=== PATIENT | female | born 1980 | race Caucasian/White ===

== ENCOUNTER 2019-04-18 18:52 | Outpatient (REF) | payer OTHER, SELFPAY ==
[2019-04-18 20:51] LABS: Abs Immature Grans 0.01 k/cumm (0.0-0.09); Absolute Basophil Count 0.02 k/cumm (0.0-0.2); Absolute Eosinophil Count 0.13 k/cumm (0.0-0.7); Absolute Lymphocyte Count 2.92 k/cumm (1.2-3.4); Absolute Monocyte Count 0.85 k/cumm (0.11-0.7); Absolute Neutrophil Count 6.07 k/cumm (1.2-6.7); Basophils % 0.2; Eosinophils % 1.3; HCT 41.2 % (36.0-46.0); HGB 13.6 g/dL (12.0-15.5); Immature Grans % 0.1 %; Lymphocytes % 29.2; Mean Corpuscular Hemoglobin 31.1 pg (27.0-33.0); Mean Corpuscular Volume 94.1 fL (80-95); Mean Platelet Volume 9.6 fL (8.0-11.0); Monocytes % 8.5; Neutrophils % 60.7; Platelet Count 358 x1000/uL (130-400); RBC 4.38 m/cumm (4.00-5.20); RBC Distribution Width 12.4 % (11.7-14.6)
[2019-04-18 21:16] LABS: ALT 22 U/L (14-59); AST 15 U/L (15-37); Albumin 4.1 g/dL (3.4-5.0); Alkaline Phosphatase 53 U/L (46-116); Anion Gap 9.4 mmol/L (3-11); BUN 20 mg/dL (7-18); Bilirubin, Total 0.1 mg/dL (0.2-1.0); CO2 24.6 mmol/L (21.0-32.0); CREATININE 0.85 mg/dL (0.55-1.02); Calcium 8.7 mg/dL (8.5-10.1); Chloride 105 mmol/L (98-107); Glucose 88 mg/dL (74-106); Potassium 4.2 mmol/L (3.5-5.1); Sodium 139 mmol/L (136-145)
== END 2019-04-18 19:12 ==
LOC: NCHCN 18:52
PROVIDERS: PCP Family Medicine; Visit Provider Physician Assistant Medical
DX: R53.83 Other fatigue (principal)
CPT/HCPCS: 80053; 84443; 85025

== ENCOUNTER 2019-06-29 10:18 | Outpatient (REF) | payer OTHER, SELFPAY ==
[2019-06-29 19:32] LABS: TSH 2.34 uIU/mL (0.36-3.74)
== END 2019-06-29 10:38 ==
LOC: NCHCN 10:18
PROVIDERS: PCP Family Medicine; Visit Provider Physician Assistant Medical
DX: E03.9 Hypothyroidism, unspecified (principal)
CPT/HCPCS: 84443

== ENCOUNTER 2020-01-09 10:52 | Outpatient (REF) | payer OTHER, SELFPAY ==
--- NOTE | 2020-01-09 09:58 | PAPFT_PTH ---
PATIENT: Maria Del Carmen Dorado LOC: [facility] U#:[id number] AGE/SX: 39/F ROOM: RE01/09/[address]: Ryne Bonner : 1980 BED: DIS: 01/09/2020 SPEC #: [id number] RECD: 01/10/20 12:51 STATUS: FATIMAH REQ #: [id number] VIANCA: 01/09/20 09:[address]: Ryne Bonner DEPT: [facility] Cytology RECD BY: Faith Hurd ENTERED: 01/10/20 12:51 SP TYPE: PAPFT OTHR DR: Sally Reyes V Tissues: 1 - CX/ENDOCX FOR PAP SMEARS Procedures: PAP THIN PREP/UVM Screening HPV DNA PROBE Comments: [id number] ([facility])
[2020-01-09 21:13] LABS: Calculated LDL 125 mg/dL (<100); Cholesterol 207 mg/dL (<200); HDL Cholesterol 51 mg/dL (40-60); TSH 2.25 uIU/mL (0.36-3.74); Triglyceride 159 mg/dL (<150)
== END 2020-01-09 11:12 ==
LOC: NCHCN 10:52
PROVIDERS: PCP Family Medicine; Visit Provider Physician Assistant Medical
DX: Z00.8 Encounter for other general examination (principal); N92.6 Irregular menstruation, unspecified; E03.9 Hypothyroidism, unspecified; Z12.4 Encounter for screening for malignant neoplasm of cervix; Z11.51 Encounter for screening for human papillomavirus (HPV)
CPT/HCPCS: 80061; 88142; 84443; 87624

== ENCOUNTER 2020-01-23 01:48 | Outpatient (CLI) | payer OTHER, SELFPAY ==
--- NOTE | 2020-01-23 | DI.US_ITS ---
EXAM: US PELVIS TRANSVAGINAL CLINICAL HISTORY: IRREGULAR MENSES,N92.6. TECHNIQUE: Transabdominal and transvaginal pelvic ultrasound was performed using standard protocol. COMPARISON: No exams were available for comparison FINDINGS: KIDNEYS: Kidneys are symmetric in size. No evidence of renal calculi. No evidence of hydronephrosis. No renal mass or cyst identified. UTERUS: Position: Retroverted. Size: 10.4 long by 6.0 AP by 5.8 transverse cm Endometrium: 0.6 cm. Normal for patient's menstrual status. Myometrium: Unremarkable. Cervix: Unremarkable. OVARIES: Right: 2.9 x 1.6 x 1.2 cm Cyst or mass: Small follicular cysts are present. Left: 2.6 x 2 x 1.7 cm Cyst or mass: 0.6 x 0.6 x 0.5 cm small hemorrhagic cyst. DOPPLER: Color: Symmetric and uniform flow to both ovaries. No hyperemia. Duplex: Normal ovarian arterial waveforms visualized. CUL-DE-SAC: Free fluid: None. Other: None. IMPRESSION: 1. Normal sonographic appearance of the kidneys. 2. Normal-appearing uterus with endometrial stripe within normal limits. 3. Unremarkable bilateral ovaries. DATA REPOSITORY:
== END 2020-01-23 02:08 ==
PROVIDERS: PCP Family Medicine; Visit Provider Physician Assistant Medical
DX: N92.6 Irregular menstruation, unspecified (principal)
CPT/HCPCS: 76830; 76856

== ENCOUNTER 2020-02-06 00:33 | Outpatient (CLI) | payer OTHER, SELFPAY ==
--- NOTE | 2020-02-06 08:23 | DI.MAMMO_ITS ---
EXAM: MAMMO SCREENING CLINICAL HISTORY: SCREENING, HEALTH MAINTENANCE EXAM,Z00.8 TECHNIQUE: Mammograms were interpreted according to the usual protocol including computer analysis w [employer] system, tomosynthesis and C-view imaging. COMPARISON: FINDINGS: The breasts are of moderate density. Note is made of prior breast reduction surgery. There is no dominant mass or clumped microcalcification in either breast. No prior studies available for comparison. IMPRESSION: No specific evidence of malignancy at this time. Routine screening examinations are suggested at ye renan intervals in this age group according to the ACR guidelines. BI-RADS Category 1 - Negative Breast Density - Category B - Scattered areas of fibroglandular density
== END 2020-02-06 00:53 ==
PROVIDERS: PCP Family Medicine; Visit Provider Physician Assistant Medical
DX: Z12.31 Encounter for screening mammogram for malignant neoplasm of breast (principal); Z00.8 Encounter for other general examination
CPT/HCPCS: 77063; 77067

== ENCOUNTER 2020-12-03 12:54 | Outpatient (REF) | payer OTHER, SELFPAY ==
[2020-12-03 14:14] LABS: TSH 2.03 uIU/mL (0.36-3.74)
== END 2020-12-03 12:55 | disposition home or self-care (01) ==
LOC: NCHCN 12:54
PROVIDERS: Physician Assistant Medical; PCP Family Medicine; Visit Provider Family Medicine
DX: E03.9 Hypothyroidism, unspecified (principal)
CPT/HCPCS: 84443

== ENCOUNTER → 2021-07-15 00:49 | Outpatient (CLI) | payer OTHER, SELFPAY ==
--- NOTE | 2021-07-15 | DI.MAMMO_ITS ---
Exam(s) MAMMO SCREENING EXAM: MAMMO SCREENING CLINICAL HISTORY: SCREENING, Z12.31 TECHNIQUE: Mammograms were interpreted according to the usual protocol including computer analysis w [employer] CAD system, tomosynthesis and C-view imaging. COMPARISON: 2020 FINDINGS: The breasts are composed of scattered fibroglandular densities, Breast Density category B. Mild bilateral scarring is noted related to prior breast reduction surgery. Left breast: Question of an area of nodularity in the subareolar region of the left breast versus ove rlying fibroglandular tissue. No skin thickening or nipple retraction. Right breast: No suspicious masses or suspicious microcalcifications are seen. No skin thickening or abnormal axillary lymph nodes are seen. There has been no significant change from prior exams. IMPRESSION: Question of nodule versus overlying tissue subareolar region of the left breast. Spot compression vi ews and ultrasound are requested for further evaluation. BI-RADS Cat 0 - Assessment Incomplete: Need additional imaging evaluation Breast Density - Category B, scattered fibroglandular densities. A negative radiographic report should not delay biopsy if a dominant or clinically suspicious mass is present. Up to ten percent of cancers are not identified on mammography. A negative report may reinforce clinical impression. Adenosis and dense breasts may obscure an underlying neoplasm. False positive reports average 6 to 10%. Patient will receive a letter notifying them of these results.
== END ==
PROVIDERS: PCP Family Medicine; Visit Provider Physician Assistant Medical
DX: Z12.31 Encounter for screening mammogram for malignant neoplasm of breast (principal); R92.8 Other abnormal and inconclusive findings on diagnostic imaging of breast
CPT/HCPCS: 77063; 77067

== ENCOUNTER → 2021-07-24 01:07 | Outpatient (CLI) | payer OTHER, SELFPAY ==
--- NOTE | 2021-07-24 | DI.MAMMO_ITS ---
Exam(s) MAMMO SCREEN CALL BACK UNI US BREAST LT COMPLETE EXAM: MAMMO SCREEN CALL BACK UNI -LEFT AND COMPLETE LEFT BREAST ULTRASOUND CLINICAL HISTORY: AREA OF NODULARITY LEFT BREAST. TECHNIQUE: Unilateral spot mammographic images obtained with 3D tomosynthesisand utilizing computer aided detection (CAD). . Complete LEFT breast Ultrasound was also performed, including all 4 quadrants, the retroareolar regio n, and the ipsilateral axilla. COMPARISON: Prior mammograms were reviewed. This additional imaging was performed due to findings described on the recent screening mammogram of 07/15/2021. FINDINGS: Additional mammographic views performed todayrender this area less concerning. Ultrasound performed today reveals a solitary benign 6 millimeter microcyst at the 10 o'clock positio n of the left breast. No solid lesions in all 4 quadrants. Retroareolar region unremarkable. There is no adenopathy in the left axilla. IMPRESSION: 1. No radiographic evidence of malignancy in left breast. 2. Benign 6 millimeter microcysts seen at 10 o'clock position on ultrasound. No solid lesions seen o n ultrasound. Appropriate follow-up is to keep this patient yearly mammogram schedule, with earlier imaging if a s elf detected breast change is noted.. The patient was informed of these findings and recommendations prior to leaving the department today. BI-RADS Category 2 - Benign Findings Breast Density - Category B - Scattered areas of fibroglandular density Breast density Category C or D implies that the patient has dense breast tissue. Dense breast tissue can make it harder to find cancer on a mammogram. Dense breast tissue is also associated with an incr eased risk of breast cancer. This information about the result of the mammogram report was provided to the patient to raise their awareness. Use this report when you speak with the patient about their risks for breast cancer, which includes their family history. At that time, you may recommend additional screening tests (Ultrasoun d or MRI) as these tests may add significant information. A negative radiographic report should not delay biopsy if a dominant or clinically suspicious mass is present. Up to ten percent of cancers are not identified on mammography. A negative report may reinforce clinical impression. Adenosis and dense breasts may obscure an underlying neoplasm. False positive reports average 6 to 10%. Patient will receive a letter notifying them of these results.
== END ==
PROVIDERS: PCP Family Medicine; Visit Provider Physician Assistant Medical
DX: Z12.31 Encounter for screening mammogram for malignant neoplasm of breast (principal); R92.8 Other abnormal and inconclusive findings on diagnostic imaging of breast; N60.02 Solitary cyst of left breast
CPT/HCPCS: 76642; 77063; 77067

== ENCOUNTER 2021-10-24 14:25 | Outpatient (REF) | payer OTHER, SELFPAY ==
[2021-10-24 17:10] LABS: Abs Immature Grans 0.02 10^3/uL (0.0-0.06); Absolute Basophil Count 0.04 10^3/uL (0.0-0.2); Absolute Eosinophil Count 0.12 10^3/uL (0.0-0.7); Absolute Monocyte Count 0.74 10^3/uL (0.1-0.8); Absolute Neutrophil Count 5.86 10^3/uL (1.2-6.7); Basophils % 0.4; Eosinophils % 1.3; HCT 40.1 % (36.0-46.0); HGB 13.6 g/dL (11.2-15.7); Immature Grans % 0.2; Lymphocytes % 26.9; MCH 31.6 pg (27.0-33.0); MCHC 33.9 % (32.0-36.0); MCV 93 fL (80-95); MPV 9.9 fL (8.0-11.0); Neutrophils % 63.2; Platelet Count 355 10^3/uL (130-400); RBC 4.31 10^6/uL (3.93-5.22); RDW 12.8 % (11.7-14.6); RDW-SD 44.2 fL; WBC 9.28 10^3/uL (4.4-10.8)
[2021-10-24 17:48] LABS: D-Dimer 437 ng/mlFEU (<500)
== END 2021-10-24 14:26 | disposition home or self-care (01) ==
LOC: LBN 14:25
PROVIDERS: PCP Family Medicine; Visit Provider Nurse Practitioner Family
DX: M79.662 Pain in left lower leg (principal); L03.90 Cellulitis, unspecified
CPT/HCPCS: 85025; 85379

== ENCOUNTER → 2021-10-26 15:03 | Outpatient (CLI) | payer OTHER, SELFPAY ==
--- NOTE | 2021-10-26 | DI.US_ITS ---
Exam(s) US LOWER EXTREMITY VENOUS LT EXAM: US LOWER EXTREMITY VENOUS LT CLINICAL HISTORY: PAIN LT LOWER LEG, M79.662 TECHNIQUE: Grayscale, color, and doppler imaging of the deep venous system of the left lower extremi ty was performed. COMPARISON: US US BREAST LT COMPLETE from 07/24/2021 FINDINGS: There is no evidence of intraluminal thrombus and there is normal compression and augmentation demons trated within the common femoral vein, femoral vein, and popliteal vein. In the ipsilateral calf the interrogated veins also exhibit normal compression/ augmentation properti es. The ipsilateral saphenofemoral junction is patent. IMPRESSION: 1. No evidence of DVT in the left lower extremity. DATA REPOSITORY:
--- NOTE | 2021-10-26 | DI.RAD_ITS ---
Exam(s) XR TIB/FIB LT EXAM: XR TIB/FIB LT CLINICAL HISTORY: PAIN LT LOWER LEG, M79.662. TECHNIQUE: 2D digital imaging was performed. COMPARISON: No exams were available for comparison FINDINGS: Two views: No evidence of fracture. Bone density normal. No osseous lesions. No radiopaque foreign body. IMPRESSION: No significant findings. DATA REPOSITORY: RADIATION DOSE DELIVERED:
== END ==
PROVIDERS: PCP Family Medicine; Visit Provider Nurse Practitioner Family
DX: M79.662 Pain in left lower leg (principal)
CPT/HCPCS: 73590; 93971

== ENCOUNTER 2021-12-23 15:06 | Outpatient (REF) | payer OTHER, SELFPAY ==
[2021-12-23 21:28] LABS: TSH 1.94 uIU/mL (0.36-3.74)
== END 2021-12-23 15:07 | disposition home or self-care (01) ==
LOC: NCHCN 15:06
PROVIDERS: PCP Family Medicine; Visit Provider Physician Assistant Medical
DX: E03.9 Hypothyroidism, unspecified (principal)
CPT/HCPCS: 84443

== ENCOUNTER 2022-08-04 02:19 | Outpatient (CLI) | payer OTHER, SELFPAY ==
--- NOTE | 2022-08-04 09:50 | DI.MAMMO_ITS ---
Exam(s) MAMMO SCREENING EXAM: MAMMO SCREENING CLINICAL HISTORY: SCREENING, Z12.31. TECHNIQUE: Bilateral full field digital CC and MLO mammographic images were obtained with 3D tomosyn thesis and utilizing computer aided detection (CAD). COMPARISON: Prior mammograms were reviewed. Prior ultrasound examination of July 2021 also reviewed. FINDINGS: Appearance of the bilateral breast tissue most probably reflects prior bilateral reduction mammoplast y surgery. There are no new significant radiograph findings in the right breast. In the left breast there is again noted a nodular density in the relatively retroareolar region which appears unchanged from July 2021 an shown to be a cyst on ultrasound July 2021. This appears unchange d. Slightly more medially in the left breast on 3D imaging is a suggestion of another nodular densit y measuring approximately 5 x 5 mm and located 5 cm in from the nipple on the CC view, medial of cent er. On the MLO view this is located 7 cm from nipple. Spot compression views and ultrasound recomme nded. There are no malignant-appearing microcalcification groups in either breast. There is no significant architectural distortion nor skin thickening-retraction. IMPRESSION: No radiographic evidence of malignancy in the right breast. Left breast nodular densities as described above. Spot compression CC and MLO views recommended as w ell as complete left breast ultrasound.. BI-RADS Category 0 - Assessment Incomplete: Need additional imaging evaluation Breast Density - Category B - Scattered areas of fibroglandular density Breast density Category C or D implies that the patient has dense breast tissue. Dense breast tissue can make it harder to find cancer on a mammogram. Dense breast tissue is also associated with an incr eased risk of breast cancer. This information about the result of the mammogram report was provided to the patient to raise their awareness. Use this report when you speak with the patient about their risks for breast cancer, which includes their family history. At that time, you may recommend additional screening tests (Ultrasoun d or MRI) as these tests may add significant information. A negative radiographic report should not delay biopsy if a dominant or clinically suspicious mass is present. Up to ten percent of cancers are not identified on mammography. A negative report may reinforce clinical impression. Adenosis and dense breasts may obscure an underlying neoplasm. False positive reports average 6 to 10%. Patient will receive a letter notifying them of these results.
== END 2022-08-04 02:39 ==
LOC: DI 02:19
PROVIDERS: PCP Family Medicine; Visit Provider Physician Assistant Medical
DX: Z12.31 Encounter for screening mammogram for malignant neoplasm of breast (principal)
CPT/HCPCS: 77063; 77067

== ENCOUNTER 2022-08-11 02:12 | Outpatient (CLI) | payer OTHER, SELFPAY ==
--- NOTE | 2022-08-11 14:45 | DI.US_ITS ---
Exam(s) US BREAST LT LIMITED EXAM: US BREAST LT LIMITED CLINICAL HISTORY: LT BREAST NODULAR DENSITIES TECHNIQUE: Ultrasound left breast performed using standard protocol. COMPARISON: No exams were available for comparison FINDINGS: No solid or cystic masses, hypoechoic foci, areas of abnormal shadowing, or areas of skin thickening. IMPRESSION: No sonographically suspicious finding. BI-RADS Category 1 - Negative Please see combined ultrasound mammogram report of the same day. DATA REPOSITORY:
--- NOTE | 2022-08-11 14:55 | DI.MAMMO_ITS ---
Exam(s) MG MAMMO SCREEN CALL BACK UNI EXAM: MG MAMMO SCREEN CALL BACK UNI CLINICAL HISTORY: LT BREAST NODULAR DENSITIES. TECHNIQUE: Craniocaudal and mediolateral oblique spot compression digital Mammography views of the l eftbreast with Tomosynthesis and left breast ultrasound. COMPARISON: Recent exam of 04 Aug 2022 and exams from 2019 and 2021. FINDINGS: Mammography/Tomosynthesis: Masses/Architectural Distortion: None seen. There of nodularity questions in the inferomedial left b reast does not persist on additional views, consistent with overlying fibroglandular tissue. Microcalcifictions: No suspicious pleomorphic-type are seen. Skin Thickening/Nipple Retraction: None. Left breast US: Echotexture: Normal appearance of the glandular tissue. Shadowing: No suspicious foci. Cyst: None. Solid lesions: None seen. Ductal dilation: None. IMPRESSION: 1. No evidence of malignancy is noted. 2. Unless there is more urgent need, follow-up screening mammography is recommended, as per [place] [employer] guidelines. 3. The findings were discussed with the patient on the date of the examination. BI-RADS Category 1 - Negative Breast Density - Category B - Scattered areas of fibroglandular density A negative radiographic report should not delay biopsy if a dominant or clinically suspicious mass is present. Up to ten percent of cancers are not identified on mammography. A negative report may reinforce clinical impression. Adenosis and dense breasts may obscure an underlying neoplasm. False positive reports average 6 to 10%. Patient will receive a letter notifying them of these results.
== END 2022-08-11 02:32 ==
LOC: DI 02:19
PROVIDERS: PCP Family Medicine; Visit Provider Physician Assistant Medical
DX: Z12.31 Encounter for screening mammogram for malignant neoplasm of breast (principal); R92.8 Other abnormal and inconclusive findings on diagnostic imaging of breast
CPT/HCPCS: 76642; 77063; 77067

== ENCOUNTER 2022-12-22 15:46 | Outpatient (REF) | payer OTHER, SELFPAY ==
[2022-12-22 15:49] LABS: Hemoglobin A1C 6.1 % (<5.7)
[2022-12-22 16:03] LABS: ALT 36 U/L (14-59); AST 23 U/L (15-37); Albumin 3.8 g/dL (3.4-5.0); Alkaline Phosphatase 63 U/L (46-116); Anion Gap 8.5 mmol/L (3-11); BUN 9 mg/dL (7-18); Bilirubin, Total 0.3 mg/dL (0.2-1.0); CO2 24.5 mmol/L (21.0-32.0); CREATININE 0.5 mg/dL (0.55-1.02); Calcium 9.1 mg/dL (8.5-10.1); Calculated LDL 96 mg/dL (<100); Chloride 104 mmol/L (98-107); Cholesterol 172 mg/dL (<200); Estimated GFR 118.53 (mL/min/1.73m2); Ferritin 26 ng/mL (8-252); Glucose 103 mg/dL (74-106); HDL Cholesterol 42 mg/dL (40-60); Sodium 137 mmol/L (136-145); TSH 1.46 uIU/mL (0.36-3.74); Total Protein 7.6 g/dL (6.4-8.2); Triglyceride 171 mg/dL (<150)
== END 2022-12-22 15:47 | disposition home or self-care (01) ==
LOC: NCHCN 15:46
PROVIDERS: PCP Family Medicine; Visit Provider Physician Assistant Medical
DX: E03.9 Hypothyroidism, unspecified (principal); G25.81 Restless legs syndrome; E66.9 Obesity, unspecified
CPT/HCPCS: 80053; 80061; 82728; 83036; 84443

== ENCOUNTER → 2022-12-24 14:14 | Outpatient (CLI) | payer OTHER, SELFPAY ==
--- NOTE | 2022-12-24 16:45 | DI.RAD_ITS ---
Exam(s) XR HIP LT COMPLETE AP PELVIS EXAM: XR HIP LT COMPLETE AP PELVIS CLINICAL HISTORY: LEFT HIP PAIN M25.552. TECHNIQUE: 2D digital imaging was performed of the left hip. Two views were obtained. AP pelvis an d lateral left hip views were obtained. COMPARISON: No exams were available for comparison FINDINGS: BONES: No acute fracture is present. No bony destructive lesion is seen. JOINTS: No dislocation present. The left hip is well maintained. There is mild acetabular spurring i n the right hip. Mild degenerative changes are seen in the lower lumbar spine. SOFT TISSUE: There is an IUD in the pelvis. IMPRESSION: 1. Unremarkable left hip. 2. Mild degenerative changes in the right hip and lumbar spine. DATA REPOSITORY: RADIATION DOSE DELIVERED:
== END ==
PROVIDERS: PCP Family Medicine; Visit Provider Physician Assistant Medical
DX: M16.11 Unilateral primary osteoarthritis, right hip (principal); M47.816 Spondylosis without myelopathy or radiculopathy, lumbar region
CPT/HCPCS: 73502

== ENCOUNTER 2023-12-28 16:13 | Outpatient (REF) | payer OTHER, SELFPAY ==
[2023-12-28 20:51] LABS: Hemoglobin A1C 5.9 % (<5.7)
== END 2023-12-28 16:14 | disposition home or self-care (01) ==
LOC: NCHCN 16:13
PROVIDERS: PCP Physician Assistant Medical; Visit Provider Physician Assistant Medical
DX: E03.9 Hypothyroidism, unspecified (principal); R73.03 Prediabetes
CPT/HCPCS: 83036; 84443

== ENCOUNTER 2024-01-04 02:11 | Outpatient (CLI) | payer OTHER, SELFPAY ==
--- NOTE | 2024-01-04 | DI.MAMMO_ITS ---
Exam(s) MAMMO SCREENING EXAM: MAMMO SCREENING CLINICAL HISTORY: Screening, Z12.31. TECHNIQUE: Bilateral full field digital CC and MLO mammographic images were obtained with 3D tomosyn thesis and utilizing computer aided detection (CAD). COMPARISON: Prior mammograms were reviewed. Prior ultrasound July 2022 reviewed FINDINGS: Appearance of the bilateral fibroglandular tissue reflects prior bilateral reduction surgery. Asymmetric density left breast is unchanged There are no new spiculated masses nor malignant appearing microcalcification groups. There is no significant architectural distortion nor skin thickening-retraction. IMPRESSION: No radiographic evidence of malignancy. BI-RADS Category 2 - Benign Findings Breast Density - Category B - Scattered areas of fibroglandular density Breast density Category C or D implies that the patient has dense breast tissue. Dense breast tissue can make it harder to find cancer on a mammogram. Dense breast tissue is also associated with an incr eased risk of breast cancer. This information about the result of the mammogram report was provided to the patient to raise their awareness. Use this report when you speak with the patient about their risks for breast cancer, which includes their family history. At that time, you may recommend additional screening tests (Ultrasoun d or MRI) as these tests may add significant information. A negative radiographic report should not delay biopsy if a dominant or clinically suspicious mass is present. Up to ten percent of cancers are not identified on mammography. A negative report may reinforce clinical impression. Adenosis and dense breasts may obscure an underlying neoplasm. False positive reports average 6 to 10%. Patient will receive a letter notifying them of these results.
== END 2024-01-04 02:31 ==
LOC: DI 02:12
PROVIDERS: PCP Physician Assistant Medical; Visit Provider Physician Assistant Medical
DX: Z12.31 Encounter for screening mammogram for malignant neoplasm of breast (principal)
CPT/HCPCS: 77063; 77067

== ENCOUNTER 2024-01-04 14:02 | Outpatient (REF) | payer OTHER, SELFPAY ==
--- NOTE | 2024-01-04 13:50 | PAPFT_PTH ---
PATIENT: Maria Del Carmen Dorado LOC: [facility] U#:[id number] AGE/SX: 43/F ROOM: RE01/04/[address]: Mona Arita : 1980 BED: DIS: 01/04/2024 SPEC #: [id number] RECD: 01/04/24 18:22 STATUS: FATIMAH REGisella #: [id number] VIANCA: 01/04/24 13:[address]: Mona Arita DEPT: [facility] Cytology RECD BY: Faith Hurd ENTERED: 01/04/24 18:22 SP TYPE: PAPFT OTHR DR: Ryne Bonner Tissues: 1 - CX/ENDOCX FOR PAP SMEARS Procedures: PAP THIN PREP/UVM Screening HPV DNA PROBE Comments: [id number] (HPV 16 & 18/45)
== END 2024-01-04 14:03 | disposition home or self-care (01) ==
LOC: LBN 14:02
PROVIDERS: PCP Physician Assistant Medical; Visit Provider Obstetrics & Gynecology Gynecology
DX: Z97.5 Presence of (intrauterine) contraceptive device (principal); N92.1 Excessive and frequent menstruation with irregular cycle
CPT/HCPCS: 88142; 87624

== ENCOUNTER 2024-02-08 09:50 | Outpatient (REF) | payer OTHER, SELFPAY ==
--- NOTE | 2024-02-08 09:45 | ENDOMET_PTH ---
PATIENT: Maria Del Carmen Dorado LOC: [facility] U#:[id number] AGE/SX: 43/F ROOM: RE02/08/[address]: Mona Arita : 1980 BED: DIS: 02/08/2024 SPEC #: [id number] RECD: 02/08/24 12:42 STATUS: FATIMAH REQ #: [id number] VIANCA: 02/08/24 09:[address]: Mona Arita DEPT: Surgical Specimen RECD BY: Faith Hurd ENTERED: 02/08/24 12:42 SP TYPE: Endomet OTHR DR: Ryne Bonner Tissues: 1 - ENDOMETRIUM BX/BIRDETTE Procedures: GROSS AND MICRO LEVEL 4 Comments: [id number]
== END 2024-02-08 09:51 | disposition home or self-care (01) ==
LOC: LBN 09:50
PROVIDERS: PCP Physician Assistant Medical; Visit Provider Obstetrics & Gynecology Gynecology
DX: N94.6 Dysmenorrhea, unspecified (principal)
CPT/HCPCS: 88305

== ENCOUNTER 2024-02-13 04:00 | Outpatient (CLI) | payer OTHER, SELFPAY ==
[2024-02-13 16:03] LABS: HCT 39.9 % (36.0-46.0); HGB 13.4 g/dL (11.2-15.7); MCH 31.7 pg (27.0-33.0); MCHC 33.6 % (32.0-36.0); MCV 94 fL (80-95); MPV 8.9 fL (8.0-11.0); Platelet Count 303 10^3/uL (130-400); RBC 4.23 10^6/uL (3.93-5.22); RDW 12.4 % (11.7-14.6); RDW-SD 43.1 fL; WBC 10.14 10^3/uL (4.4-10.8)
[2024-02-13 16:51] LABS: Anion Gap 8.5 mmol/L (3-11); CO2 29.5 mmol/L (21.0-32.0); Chloride 103 mmol/L (98-107); Potassium 4.2 mmol/L (3.5-5.1); Sodium 141 mmol/L (136-145)
[2024-02-13 17:13] LABS: HCG Qual (Serum) Negative
== END 2024-02-13 04:01 | disposition home or self-care (01) ==
LOC: LBO 04:35
PROVIDERS: PCP Physician Assistant Medical; Visit Provider Obstetrics & Gynecology Gynecology
DX: Z01.818 Encounter for other preprocedural examination (principal)
CPT/HCPCS: 36415; 80051; 85027; 86850; 86900; 86901; 84703

== ENCOUNTER 2024-02-15 06:05 | Day surgery (SDC) | payer OTHER, SELFPAY ==
[2024-02-15 06:13] VITALS: BP 116/67; PULSE 70; RESP 18; TEMP 36.2; O2SAT 97
[2024-02-15] MEDS: Normal Saline 1,000 ML 30 ML IV (07:15)
--- NOTE | 2024-02-15 07:18 | W.ANESPRE ---
General Info Date of Service Date Performed: 02/15/24 Height: 5 ft 4 in Weight: 107.3 kg Body Mass Index (BMI): 40.6 Surgical Procedure: Operation Date: 02/15/24 07:40 Proposed Procedure Side Surgeon p HTA Endometrial Ablation Mona Arita MD Actual Procedure Side Surgeon p HTA Endometrial Ablation w/Hysteroscopy Not Applicable Mona Arita MD Pre-Op Diagnosis Post-Op Diagnosis Dysmenorrhea + Abnormal Uterine Bleeding Meds Allergies and Home Medications Allergies Allergy/AdvReac Type Severity Reaction Status Date / Time Penicillins Allergy Severe shock/anaph Verified 02/15/24 06:25 alyxis aspirin Allergy Intermediate Unknown Verified 02/15/24 06:25 Home Medication ?Medication ?Instructions ?Recorded levothyroxine 50 mcg capsule 50 mcg PO DAILY 06/23/21 tacrolimus 0.1 % topical ointment 1 applic topical PRN 06/24/21 (Protopic) albuterol sulfate 90 mcg/actuation 2 puff inhalation Q6H PRN 04/13/23 aerosol inhaler (Proventil HFA) shortness of breath or wheezing #8.5 grams benzonatate 100 mg capsule 100 mg PO TID PRN cough #14 caps 04/13/23 acetylcysteine 600 mg capsule 1,200 mg PO BID 02/14/24 omeprazole 40 mg capsule,delayed 40 mg PO DAILY 02/14/24 release Current Visit Medications: Current Medications Generic Name Dose Route Start Last Admin Trade Name Freq PRN Reason Stop Dose Admin Sodium Chloride 1,000 mls @ 30 mls/hr 02/15/24 07:00 Saline 1000ml Bag IV 03/16/24 06:59 INFUSION MONICA IV Miscellaneous Supplies 1 each 02/15/24 06:00 Iv Access IV 02/15/24 23:59 DIRECTED MONICA Sodium Chloride 0 ml 02/15/24 06:00 Normal Saline Flush 10 Ml Syr IV 02/15/24 23:59 PRN PRN Sodium Chloride 0 ml 02/15/24 06:00 Normal Saline 10 Ml Vial IJ 02/15/24 23:59 DIRECTED PRN Sterile Water 0 ml 02/15/24 06:00 Water,Injection,Sterile 10 Ml Vial IJ 02/15/24 23:59 DIRECTED PRN PFSH Active Problems Active Problems: Problem Status Onset Code History of endometrial biopsy Acute Z92.89 Depression Chronic F32.A Plantar fasciitis Acute M72.2 GERD (gastroesophageal reflux disease) Chronic K21.9 Obesity Chronic E66.9 Tobacco abuse Acute Z72.0 Perioral dermatitis Acute L71.0 Hypothyroid Chronic E03.9 Dysmenorrhea Acute N94.6 Tobacco Smoking/Tobacco Use Status: Current every day Tobacco Type: cigarettes Years smoked: 15 Alcohol Alcohol Intake: current Alcohol intake frequency: a few times a week Substance Use Substance use: Occasionally Substance use type: marijuana Prental History History 5 Para 4 Hx # Term Pregnancies Multiple births Hx # Pregnancies Ectopic pregnancies AB induced Hx Number of Living Children AB spontaneous 1 Vital Signs and Lab Results Vital Signs Most Recent Vital Signs in EMR: Most Recent Vital Signs Temp Pulse Resp BP Pulse Ox 36.2 C L 70 18 116/67 97 02/15/24 06:13 02/15/24 06:13 02/15/24 06:13 02/15/24 06:13 02/15/24 06:13 Lab Results Blood Type / Crossmatch: Antibody Screen NEGATIVE 02/13/24 Complete Blood Count: White Blood Count 10.14 10^3/uL (4.4-10.8) 02/13/24 15:40 Red Blood Count 4.23 10^6/uL (3.93-5.22) 02/13/24 15:40 Hemoglobin 13.4 g/dL (11.2-15.7) 02/13/24 15:40 Hematocrit 39.9 % (36.0-46.0) 02/13/24 15:40 Platelet Count 303 10^3/uL (130-400) 02/13/24 15:40 Complete Metabolic Panel: Sodium 141 mmol/L (136-145) 02/13/24 15:40 Potassium 4.2 mmol/L (3.5-5.1) 02/13/24 15:40 Chloride 103 mmol/L (98-107) 02/13/24 15:40 Carbon Dioxide 29.5 mmol/L (21.0-32.0) 02/13/24 15:40 Liver Function Panel: No Data to Display Coagulation Panel: No Data to Display Cardiac Panel: No Data to Display Arterial Blood Gas: No Data to Display Venous Blood Gas: No Data to Display Pancreas Panel: No Data to Display Thyroid Panel: No Data to Display Infectious Disease: No Data to Display Blood Cultures: No Data to Display Toxicology Panel: No Data to Display Panel: Serum HCG, Qualitative Negative 02/13/24 15:40 Anesthesia Assessment and Plan Anesthesia History Personal History: No History of Anesthesia Complications Family History: No Family History of Anesthesia Complications Exercise Tolerance Exercise Tolerance: Metabolic Equivalents>4 Pertinent Negatives Pertinent Negatives: No Symptoms of GERD, No Major Cardiovascular Symptoms or Complaints, No Major Pulmonary Symptoms or Complaints and No History of CVA/TIA Cardiac & Pulmonary Exam Cardiac Exam: Normal S1/S2 Heart Sounds Pulmonary Exam: Clear Bilateral Breath Sounds Cardiac and Pulmonary Comment:: Smoker, albuterol inhaler was prescribed last year for a one time URI Implantable Cardiac Device Does patient have a Pacemaker or an ICD?: No Airway Exam Known Difficult Airway: No Mallampati Class: 2 Mouth Opening: Normal (> 3cm) Thyromental Distance: Greater than 3 cm Neck Range of Motion: Full ROM Neck Circumference: Normal Teeth Condition: Normal Dentition ASA Classification ASA Score: ASA 3 Emergency Case?: No NPO Status NPO Status: NPO Clears >2 hours, Solids >8 hours Status Status: Negative HCG Anesthesia Plan Resuscitation Status: Full Code Anesthesia Technique: General Anesthesia Airway Planned: Natural Airway Monitors Used: Standard Monitors
[2024-02-15 07:19] VITALS: BMI 40.6
[2024-02-15] MEDS: Bupivacaine 0.25% Pres-Free 30 ML VIAL (08:07)
[2024-02-15 08:33] VITALS: BP 94/49; PULSE 70; RESP 16; TEMP 36.4; O2SAT 93
--- NOTE | 2024-02-15 08:46 | W.PM.DSUDISC ---
Date of service: 02/15/24 Discharge Plan Disposition Patient Disposition: Home Condition: Stable Discharge Details Reason For Visit: HTA endometrial ablation Attending Provider: Mona Arita Primary Care Provider: Ryne Bonner Home Meds and New Rx's Prescriptions: No Action benzonatate 100 mg capsule 100 mg PO TID PRN (Reason: cough) Qty: 14 0RF albuterol sulfate [Proventil HFA] 90 mcg/actuation HFA aerosol inhaler 2 puff inhalation Q6H PRN (Reason: shortness of breath or wheezing) Qty: 8.5 0RF levothyroxine 50 mcg capsule 50 mcg PO DAILY tacrolimus [Protopic] 0.1 % ointment 1 applic topical PRN acetylcysteine 600 mg capsule 1,200 mg PO BID Patient Comments: TAKE TWO CAPSULES BY MOUTH TWICE A DAY IN THE MORNING AND THE AFTERNOON omeprazole 40 mg capsule,delayed release(DR/EC) 40 mg PO DAILY Patient Comments: TAKE ONE CAPSULE BY MOUTH EVERY DAY Discharge Instructions Additional Instructions: You can expect watery vaginal discharge for the next 4 weeks. Call the office if you have a temperature over 100.r, pain not relieved by Ibuprofen or Tylenol. No sex or tampons until the vaginal discharge has stopped. Keep your post op appointment with Dr. Arita in 2 weeks. Stand Alone Forms: Anesthesia Discharge Inst., DSU Post TRANSMISSION SUPERINTENDENT Surg W/O Incision, Hillary Cevallos (DSU) Activity:: Activity as Tolerated Shower/Bathe:: 24 hours Diet:: As Tolerated Discharge Orders Discharge Orders: Discharge Order (Routine); Ordered 02/15/24 Ordered By: Mona Arita DS: Diagnosis Discharge Diagnosis (1) History of endometrial ablation: Status: Acute (2) Abnormal uterine bleeding (AUB): Status: Acute
--- NOTE | 2024-02-15 08:52 | W.PM.OP ---
Operative Note Operative Note PRE-OP DIAGNOSIS: abnormal uterine bleeding, dysmenorrhea POST-OP DIAGNOSIS: same PROCEDURE: Hydrothermal endometrial ablation SURGEON: Mona Arita ANESTHESIA TYPE: General:No Airway Refer to Anesthesia Record ESTIMATED BLOOD LOSS: 0 PATHOLOGY: none sent COMPLICATIONS: None Patient was transported to: same day Patient's condition: stable Indications: 43-year-old female with hx of AUB and dsymenorrhea treated with a Mirena IUD until January 2024 when the IUD fell out. Pt was counseled regarding treatment options and agreed to an endometrial ablation. Findings: Nl appearing uterine cavity. No intra-cavitary filling defects. Procedure Description: Patient was taken to the operating room where she was placed in the dorsal supine position and general anesthesia was administered without difficulty. She was then placed in the dorsolithotomy position in yellowfin stirrups and prepped and draped in the usual sterile fashion. SCDs were in place. No antibiotics were required. After a surgical timeout was performed a bivalve speculum was placed in the patient's vagina. The anterior lip of the cervix was infiltrated with 1 cc 0.25% bupivacaine and a single-tooth tenaculum was used to grasp the anterior lip of the cervix. A paracervical block was performed with infiltration of 5 cc of 0.25% bupivacaine at the 4 o'clock and 8 o'clock paracervical spaces respectively. Cervix was then sequentially dilated to a maximum of 16 Melendez. A hysteroscope sheath was inserted into the uterine cavity and a cavity assessment was performed with the above noted findings. The tip of the hysteroscope sheath was positioned to allow visualization of the uterine fundus, both tubal ostia in the midportion of the uterine cavity. The sheath was protected from the vaginal ramirez by the speculum. Heated isotonic saline was then administered via gravity into the uterus through the sheath. Once a safety assessment was performed the treatment phase of the procedure began and under direct observation the uterine cavity was treated with heated isotonic saline at 90 ?C for 10 minutes. Intrauterine cool-down phase was performed for 1 minute. The uterine cavity was carefully assessed with hysteroscopy and the uterus was noted to have a satisfactory treatment effect and the integrity of the uterine cavity was confirmed. After these findings the hysteroscope was removed as were the instruments removed from the vagina. Tenaculum site was noted to be hemostatic. The patient was placed in the dorsal supine position successfully awakened from anesthesia and transported to day surgery unit in stable condition. All sponge lap needle counts correct x2 Date of Procedure: 02/15/24
--- NOTE | 2024-02-15 08:54 | W.ANESPOSTOP ---
Postoperative Evaluation Date, Time and Location Date Performed: 02/15/24 Time Performed: 08:33 Patient Location: Day Surgery Unit Vital Signs Most Recent Imported Vital Signs: Most Recent Vital Signs Temp Pulse Resp BP Pulse Ox 36.4 C L 70 16 94/49 L 93 02/15/24 08:33 02/15/24 08:33 02/15/24 08:33 02/15/24 08:33 02/15/24 08:33 Pain Score Most Recent Pain Score: Most Recent Pain Score Pain Level 0 02/15/24 08:33 Assessment Mental Status: Awake (Alert & Oriented to Patient Baseline) Airway and Respiratory Function: Patent airway with normal (patient baseline) respiratory exam Cardiovascular Function: Hemodynamically Stable Hydration Status: Adequately Hydrated Nausea & Vomiting: No Nausea or Vomiting Pain: Pt. Denies Any Pain Peripheral Nerve Block: Patient did not receive a nerve block
[2024-02-15 09:00] VITALS: BP 100/62; PULSE 60; RESP 16; TEMP 36.6; O2SAT 99
== END 2024-02-15 09:30 | disposition home or self-care (01) ==
PROVIDERS: PCP Physician Assistant Medical; Visit Provider Obstetrics & Gynecology Gynecology
PROC: (CPT 58353; principal; 2024-02-15 07:30)
DX: N93.9 Abnormal uterine and vaginal bleeding, unspecified; N94.6 Dysmenorrhea, unspecified; E03.9 Hypothyroidism, unspecified; F32.A Depression, unspecified; F17.210 Nicotine dependence, cigarettes, uncomplicated; E66.9 Obesity, unspecified; Z68.41 Body mass index [BMI] 40.0-44.9, adult
CPT/HCPCS: 58563; J0665; J1100; J1885; J2003; J2405; J2704

== ENCOUNTER 2024-02-27 09:58 | Day surgery (SDC) | payer OTHER, SELFPAY ==
--- NOTE | 2024-02-26 12:40 | W.PM.DSUDISC ---
Date of service: 02/27/24 Discharge Plan Disposition Patient Disposition: Home Condition: Good Discharge Details Reason For Visit: screening colonoscopy Attending Provider: Fernando Bishop Primary Care Provider: Ryne Bonner Home Meds and New Rx's Prescriptions: Continued benzonatate 100 mg capsule 100 mg PO TID PRN (Reason: cough) Qty: 14 0RF albuterol sulfate [Proventil HFA] 90 mcg/actuation HFA aerosol inhaler 2 puff inhalation Q6H PRN (Reason: shortness of breath or wheezing) Qty: 8.5 0RF levothyroxine 50 mcg capsule 50 mcg PO DAILY tacrolimus [Protopic] 0.1 % ointment 1 applic topical PRN oxycodone-acetaminophen [Percocet] 5-325 mg tablet 1 tab PO Q6H MDD 4 PRN (Reason: pain) Qty: 5 0RF acetylcysteine 600 mg capsule 1,200 mg PO BID Patient Comments: TAKE TWO CAPSULES BY MOUTH TWICE A DAY IN THE MORNING AND THE AFTERNOON omeprazole 40 mg capsule,delayed release(DR/EC) 40 mg PO DAILY Patient Comments: TAKE ONE CAPSULE BY MOUTH EVERY DAY Discontinued bisacodyl [Dulcolax (bisacodyl)] 5 mg tablet,delayed release (DR/EC) 5 mg PO ONCE Qty: 4 0RF Rx Instructions: Take per colonoscopy instructions provided by ordering providers office polyethylene glycol 3350 17 gram/dose powder 17 g PO ONCE Qty: 238 0RF Rx Instructions: Take per colonoscopy instructions provided by ordering providers office Discharge Instructions Instructions: Colon polyps Additional Instructions: Crystal, I enjoyed meeting you today, and I hope you are comfortable during the colonoscopy and that you feel great this afternoon. I did find, and removed, 2 polyps today. Both of these were small and came out with no issues. These polyps will be sent off for testing since polyps, different types, and we use that information to help guide the timing of the patient's next colonoscopy. Those results usually take a week or so, but once my office has all that information, we will be in touch with recommendations. If you need anything or have any questions in the meantime, please do not hesitate to call. 1. If tolerated, consume a soft, low fiber diet for 1-2 days. 2. Do not drive, drink alcohol, operate machinery, make critical decisions, or do activities that require coordination or balance for 24 hours. 3. Because air was put into your colon during the procedure, expelling air from your rectum (passing gas or farting) is normal. 4. You may not have a bowel movement for 1-3 days because of the colonoscopy prep. This is normal. 5. Go directly to the emergency room if you notice any of the following: Develop chills (warm to touch), or if you have a thermometer and your temperature is above 101 Difficulty breathing or difficultly swallowing Persistent vomiting Severe abdominal pain, other than gas cramps Severe chest pain Black, tarry stools Any bleeding ? exceeding one tablespoon 6. Call your physician if the site where your intravenous was started becomes red, swollen, painful, and warm to touch. 7. Your physician has reviewed your pre-procedure medications. Please continue to take those medications as previously ordered. You will be given specific information/education regarding any changes to your medications before leaving. Activity:: Activity as Tolerated Diet:: As Tolerated Discharge Orders Discharge Orders: Discharge Order (Routine); Ordered 02/26/24 Ordered By: Fernando Bishop DS: Diagnosis Discharge Diagnosis (1) Encounter for screening colonoscopy: Status: Acute Asessment and Plan: Follow-up on polypectomy results
--- NOTE | 2024-02-26 12:41 | COLE_ITS ---
Date of service: 02/27/24 Time of Service: 11: Colonoscopy Report Date of procedure: 02/27/24 Pre-op diagnosis general: screening colonoscopy Post-op diagnosis procedure note: other (Colon polyps) Procedure: colonoscopy with polypectomy Surgeon: Fernando Bishop Anesthesia Type: General:No Airway Estimated blood loss (mL): 10 Pathology: other (0.25 cm flat polyp at 20 cm, 0.25 cm flat polyp at 65 cm) Complications: None Disposition: same day Indications: Maria Del Carmen is a 43 year old woman who needs her first screening colonoscopy Prep: Miralax/Dulcolax Procedure Start Time: 11:01 Procedure End Time: 11:19 Retraction Time: 10 Findings: 0.25 cm flat polyp at 20 cm, 0.25 cm flat polyp at 65 cm Procedure Description: After the induction of anesthesia, and with the patient in left lateral decubitus position, I began by performing an external anorectal exam.? Perineum and skin were normal, as was the anal verge.? There are some external hemorrhoids.? Next, I performed a digital rectal exam.? I did not appreciate any abnormal findings.? Next, I advanced a colonoscope into the rectal vault.? I performed retroflexion.? This appeared normal.? Using insufflation, I then advanced the colonoscope beyond the rectal folds and into the sigmoid colon before advancing towards the cecum.? The quality of the prep was excellent.? The scope was noted to be in the cecum by identification of the ileocecal valve and appendiceal orifice.? I then began withdrawing the colonoscope using repeated irrigation as necessary for full evaluation of the colonic mucosa. Around 65 cm from the anal verge I identified a 0.25 cm polyp. ?It appeared flat in character. ?I was able to remove this with a cold forcep polypectomy. ?I examined the site, and there was minimal bleeding. ?Once this was completed, I continued to withdraw the scope and examine the remainder of the colonic mucosa.? I found another 0.25 cm flat polyp at 20 cm from the anal verge. This was also removed with cold forceps with minimal bleeding. Once the scope was withdrawn to the level of the rectum, great care was taken to examine portions of the rectal folds.? Finally, the scope was withdrawn and the patient was brought to the same-day surgery recovery unit as the anesthetic wore off. ?The findings and instructions were shared with the patient prior to discharge. [place] Bowel Prep [place] Bowel Prep Right Colon: 3 Left Colon: 3 Transverse Colon: 3 Total Score: 9
--- NOTE | 2024-02-26 18:30 | W.ANESPRE ---
General Info Date of Service Date Performed: 02/27/24 Height: 5 ft 4 in Weight: 107.3 kg Body Mass Index (BMI): 40.6 Surgical Procedure: Operation Date: 02/27/24 11:20 Proposed Procedure Side Surgeon alta Bishop MD Meds Allergies and Home Medications Allergies Allergy/AdvReac Type Severity Reaction Status Date / Time Penicillins Allergy Severe shock/anaph Verified 02/27/24 10:18 alyxis aspirin Allergy Intermediate Unknown Verified 02/27/24 10:18 Home Medication ?Medication ?Instructions ?Recorded levothyroxine 50 mcg capsule 50 mcg PO DAILY 06/23/21 tacrolimus 0.1 % topical ointment 1 applic topical PRN 06/24/21 (Protopic) albuterol sulfate 90 mcg/actuation 2 puff inhalation Q6H PRN 04/13/23 aerosol inhaler (Proventil HFA) shortness of breath or wheezing #8.5 grams benzonatate 100 mg capsule 100 mg PO TID PRN cough #14 caps 04/13/23 acetylcysteine 600 mg capsule 1,200 mg PO BID 02/14/24 omeprazole 40 mg capsule,delayed 40 mg PO DAILY 02/14/24 release oxycodone-acetaminophen 5 mg-325 1 tab PO Q6H PRN pain #5 tabs 02/15/24 mg tablet (Percocet) Current Visit Medications: Current Medications Generic Name Dose Route Start Last Admin Trade Name Freq PRN Reason Stop Dose Admin IV Miscellaneous Supplies 1 each 02/27/24 06:00 Iv Access IV 02/27/24 23:59 DIRECTED MONICA Ondansetron HCl 4 mg 02/26/24 12:43 Ondansetron 4 Mg/2 Ml Vial IVP 03/27/24 12:42 Q4H PRN PRN Nausea / Vomiting Sodium Chloride 0 ml 02/27/24 06:00 Normal Saline Flush 10 Ml Syr IV 02/27/24 23:59 PRN PRN Sodium Chloride 0 ml 02/27/24 06:00 Normal Saline 10 Ml Vial IJ 02/27/24 23:59 DIRECTED PRN Sterile Water 0 ml 02/27/24 06:00 Water,Injection,Sterile 10 Ml Vial IJ 02/27/24 23:59 DIRECTED PRN PFSH Active Problems Active Problems: Problem Status Onset Code Encounter for screening colonoscopy Acute Z12.11 Preoperative exam for gynecologic surgery Acute Z01.818 Abnormal uterine bleeding (AUB) Acute N93.9 History of endometrial ablation Acute Z98.890 History of endometrial biopsy Acute Z92.89 Depression Chronic F32.A Plantar fasciitis Acute M72.2 GERD (gastroesophageal reflux disease) Chronic K21.9 Obesity Chronic E66.9 Tobacco abuse Acute Z72.0 Perioral dermatitis Acute L71.0 Hypothyroid Chronic E03.9 Dysmenorrhea Acute N94.6 Tobacco Smoking/Tobacco Use Status: Current every day Tobacco Type: cigarettes Years smoked: 15 Alcohol Alcohol Intake: current Alcohol intake frequency: a few times a week Substance Use Substance use: Occasionally Substance use type: marijuana Prental History History 5 Para 4 Hx # Term Pregnancies Multiple births Hx # Pregnancies Ectopic pregnancies AB induced Hx Number of Living Children AB spontaneous 1 Vital Signs and Lab Results Vital Signs Most Recent Vital Signs in EMR: Temp Pulse Resp BP Pulse Ox 36.7 C 77 20 108/58 L 95 02/27/24 10:21 02/27/24 10:21 02/27/24 10:21 02/27/24 10:21 02/27/24 10:21 Lab Results Blood Type / Crossmatch: Antibody Screen NEGATIVE 02/13/24 Complete Blood Count: White Blood Count 10.14 10^3/uL (4.4-10.8) 02/13/24 15:40 Red Blood Count 4.23 10^6/uL (3.93-5.22) 02/13/24 15:40 Hemoglobin 13.4 g/dL (11.2-15.7) 02/13/24 15:40 Hematocrit 39.9 % (36.0-46.0) 02/13/24 15:40 Platelet Count 303 10^3/uL (130-400) 02/13/24 15:40 Complete Metabolic Panel: Sodium 141 mmol/L (136-145) 02/13/24 15:40 Potassium 4.2 mmol/L (3.5-5.1) 02/13/24 15:40 Chloride 103 mmol/L (98-107) 02/13/24 15:40 Carbon Dioxide 29.5 mmol/L (21.0-32.0) 02/13/24 15:40 Liver Function Panel: No Data to Display Coagulation Panel: No Data to Display Cardiac Panel: No Data to Display Arterial Blood Gas: No Data to Display Venous Blood Gas: No Data to Display Pancreas Panel: No Data to Display Thyroid Panel: No Data to Display Infectious Disease: No Data to Display Blood Cultures: No Data to Display Toxicology Panel: No Data to Display Panel: Serum HCG, Qualitative Negative 02/13/24 15:40 Anesthesia Assessment and Plan Anesthesia History Personal History: No History of Anesthesia Complications Family History: No Family History of Anesthesia Complications Exercise Tolerance Exercise Tolerance: Metabolic Equivalents>4 Cardiac & Pulmonary Exam Cardiac Exam: Normal S1/S2 Heart Sounds Pulmonary Exam: Clear Bilateral Breath Sounds Cardiac and Pulmonary Comment:: Smoker, albuterol inhaler was prescribed last year for a one time URI Implantable Cardiac Device Does patient have a Pacemaker or an ICD?: No Airway Exam Known Difficult Airway: No Mallampati Class: 2 Mouth Opening: Normal (> 3cm) Thyromental Distance: Greater than 3 cm Neck Range of Motion: Full ROM Neck Circumference: Normal Teeth Condition: Normal Dentition ASA Classification ASA Score: ASA 3 Emergency Case?: No NPO Status NPO Status: NPO Clears >2 hours, Solids >8 hours Status Status: Negative HCG Anesthesia Plan Resuscitation Status: Full Code Anesthesia Technique: General Anesthesia Airway Planned: Natural Airway Monitors Used: Standard Monitors Preoperative Comments:: 43 yo female for colo. Sig PMHx: RAD (albuterol for a uri), GERD (omeprazole), BMI >40, hypothyroid (on replacement), depression, smoker, occ EtOH. Previous Anes: - endo ablation, prop/dexmed/ketamine, natural airway, no issues.
[2024-02-27 10:21] VITALS: BP 108/58; PULSE 77; RESP 20; TEMP 36.7; O2SAT 95
[2024-02-27] MEDS: Normal Saline Flush 10 ML SYR IV (10:36)
[2024-02-27 10:40] VITALS: BMI 40.6
--- NOTE | 2024-02-27 11:03 | BOWEL_PTH ---
PATIENT: Maria Del Carmen Dorado LOC: [facility] U#:[id number] AGE/SX: 43/F ROOM: RE02/27/[address]: Fernando Bishop MD : 1980 BED: DIS: 02/27/2024 SPEC #: [id number] RECD: 02/27/24 12:57 STATUS: FATIMAH REQ #: [id number] VIANCA: 02/27/24 11:[address]: Fernando Bishop DEPT: Surgical Specimen RECD BY: Faith Hurd ENTERED: 02/27/24 12:57 SP TYPE: Bowel OTHR DR: Ryne Bonner Tissues: 1 - BIOPSY BOWEL 2 - BIOPSY BOWEL Procedures: GROSS AND MICRO LEVEL 4 Comments: [id number]
[2024-02-27 11:22] VITALS: BP 111/65; PULSE 78; RESP 18; TEMP 36.1; O2SAT 96
--- NOTE | 2024-02-27 11:30 | W.ANESPOSTOP ---
Postoperative Evaluation Date, Time and Location Date Performed: 02/27/24 Time Performed: 11:30 Patient Location: Day Surgery Unit Vital Signs Most Recent Imported Vital Signs: Most Recent Vital Signs Temp Pulse Resp BP Pulse Ox 36.1 C L 78 18 111/65 96 02/27/24 11:22 02/27/24 11:22 02/27/24 11:22 02/27/24 11:22 02/27/24 11:22 Pain Score Most Recent Pain Score: Most Recent Pain Score Pain Level 0 02/27/24 11:22 Assessment Mental Status: Awake (Alert & Oriented to Patient Baseline) Airway and Respiratory Function: Patent airway with normal (patient baseline) respiratory exam Cardiovascular Function: Hemodynamically Stable Hydration Status: Adequately Hydrated Nausea & Vomiting: No Nausea or Vomiting Pain: Pt. Denies Any Pain Peripheral Nerve Block: Patient did not receive a nerve block
[2024-02-27 11:48] VITALS: BP 121/49; PULSE 74; RESP 16; TEMP 36.3; O2SAT 98
== END 2024-02-27 12:05 | disposition home or self-care (01) ==
LOC: SUR 09:59
PROVIDERS: PCP Physician Assistant Medical; Visit Provider Surgery
PROC: 0DJD8ZZ Inspection of Lower Intestinal Tract, Via Natural or Artificial Opening Endoscopic (ICD-10-PCS; CPT 45378; principal; 2024-02-27 11:15)
DX: Z12.11 Encounter for screening for malignant neoplasm of colon (principal); K64.8 Other hemorrhoids; K63.5 Polyp of colon
CPT/HCPCS: 45380; 81025; 88305; J2704

== ENCOUNTER 2025-01-23 15:23 | Outpatient (REF) | payer OTHER, SELFPAY ==
--- NOTE | 2025-01-23 15:00 | PAPFT_PTH ---
PATIENT: Maria Del Carmen Dorado LOC: [facility] U#:[id number] AGE/SX: 44/F ROOM: RE01/23/[address]: Ryne Bonner : 1980 BED: DIS: 01/23/2025 SPEC #: [id number] RECD: 01/24/25 12:23 STATUS: FATIMAH COBOS #: [id number] VIANCA: 01/23/25 15:[address]: Ryne Bonner DEPT: [facility] Cytology RECD BY: Faith Hurd Tissues: 1 - CX/ENDOCX FOR PAP SMEARS Procedures: PAP THIN PREP/[facility] Screening HPV DNA PROBE Comments: [id number] (HPV 16 & 18/45)
[2025-01-23 21:14] LABS: Hemoglobin A1C 5.9 % (<5.7)
[2025-01-23 21:25] LABS: Cholesterol 176 mg/dL (<200); HDL Cholesterol 46 mg/dL (>40); TSH (W/Ref FT4) 2.12 uIU/mL (0.55-4.78)
== END 2025-01-23 15:24 | disposition home or self-care (01) ==
LOC: NCHCN 15:23
PROVIDERS: PCP Physician Assistant Medical; Visit Provider Physician Assistant Medical
DX: Z12.4 Encounter for screening for malignant neoplasm of cervix (principal)
CPT/HCPCS: 80061; 88142; 83036; 84443; 87624